=== PATIENT | male | born 1990 | race Caucasian/White ===

== ENCOUNTER 2017-07-30 22:56 | Emergency (ER) | payer SELFPAY | END 2017-07-30 23:41 | disposition left against medical advice (07) | LOC: E/R 22:56 | DX: R55 Syncope and collapse (principal) | CPT/HCPCS: 99282 ==

== ENCOUNTER 2017-07-31 07:31 | Emergency (ER) | payer OTHER ==
[2017-07-31] MEDS: SOD CHLORIDE 0.9% 1,000 ML IV (08:10)
[2017-07-31] MEDS: ONDANSETRON 4 MG INJ IV (08:10)
[2017-07-31 08:16] LABS: ADD MAN DIFF? NO
[2017-07-31 08:18] LABS: BASOPHILS % 0.1 % (0.0-2.0); EOSINOPHILS % 0.2 % (0.0-7.0); HEMATOCRIT 43.7 % (42.0-52.0); HEMOGLOBIN 15.3 g/dl (14.0-18.0); LYMPHOCYTES # 1.3 10^3/ul (0.8-2.9); MEAN CORPUSCULAR HEMOGLOBIN 29.3 pg (29.0-33.0); MEAN CORPUSCULAR VOLUME 83.6 fl (82.0-101.0); MONOCYTE # 1.4 10^3/ul (0.3-0.9); MONOCYTES % 7.1 % (0.0-11.0); NEUTROPHIL # 16.1 10^3/ul (1.6-7.5); NEUTROPHILS % 85.1 % (39.0-77.0); PLATELET COUNT 352 10^3/UL (140-415); RED BLOOD COUNT 5.23 10^6/ul (4.70-6.10); RED CELL DISTRIBUTION WIDTH 12.9 % (11.5-14.5)
[2017-07-31 08:18] LABS: WHITE BLOOD COUNT 18.9 10^3/ul (4.8-10.8)
[2017-07-31 08:38] LABS: ALANINE AMINOTRANSFERASE 47 IU/L (13-69); ALBUMIN 4.6 g/dl (3.3-4.9); ALBUMIN/GLOBULIN RATIO 1.35; ALKALINE PHOSPHATASE 110 IU/L (42-121); ANION GAP 15 (8-16); ASPARTATE AMINO TRANSFERASE 29 IU/L (15-46); BILIRUBIN,INDIRECT 0.9 mg/dl (0-1.1); BILIRUBIN,TOTAL 0.9 mg/dl (0.2-1.3); BLOOD UREA NITROGEN 11 mg/dl (7-20); CALCIUM 9.4 mg/dl (8.4-10.2); CARBON DIOXIDE 25 mmol/L (21-31); CHLORIDE 107 mmol/L (97-110); CREATININE 0.93 mg/dl (0.61-1.24); GLUCOSE 115 mg/dl (70-220); LIPASE 47 U/L (23-300); SODIUM 143 mmol/L (135-144)
[2017-07-31 08:53] LABS: TROPONIN-I < 0.012 ng/ml (0.000-0.120)
[2017-07-31] MEDS: morphine 4 MG/ML VIAL IV (09:53)
[2017-07-31] MEDS: HYDROCODONE/APAP (5/325) TAB PO (10:00)
== END 2017-07-31 11:25 | disposition home or self-care (01) ==
LOC: FTE 07:31
DX: S02.602A Fracture of unspecified part of body of left mandible, initial encounter for closed fracture (principal); R55 Syncope and collapse; W18.39XA Other fall on same level, initial encounter; Y92.9 Unspecified place or not applicable
CPT/HCPCS: 36415; 70450; 70486; 80053; 83690; 84484; 85025; 93005; 96361; 96374; 99285-25